=== PATIENT | male | born 1965 | race Caucasian/White ===

== ENCOUNTER 2022-03-28 16:57 | Emergency (ER) | payer SELFPAY ==
[2022-03-28] MEDS ORDERED: Acetaminophen/HYDROcodone 325-5 MG Tab PO ONE (17:11)
== END 2022-03-28 18:34 | disposition home or self-care (01) ==
LOC: MW.ED 16:57
DX: S09.90XA Unspecified injury of head, initial encounter (principal); F17.210 Nicotine dependence, cigarettes, uncomplicated; Z79.899 Other long term (current) drug therapy; Z86.16 Personal history of COVID-19; W01.10XA Fall on same level from slipping, tripping and stumbling with subsequent striking against unspecified object, initial encounter
CPT/HCPCS: 70450; 72125; 99284; A9270